=== PATIENT | female | born 1975 | race Caucasian/White ===

== ENCOUNTER 2017-01-05 14:45 | Inpatient (IN) | payer OTHER ==
[2017-01-05 16:44] VITALS: BMI 20.2
--- NOTE | 2017-01-05 18:33 | HP ---
Admission ROS [facility] - [facility] Chief Complaint: i want to go to rehab Allergies/Adverse Reactions: Allergies Allergy/AdvReac Type Severity Reaction Status Date / Time No Known Allergies Allergy Verified 01/05/17 17:29 History of Present Illness: 41 years old female with long history of heroin nicotine dependence has asthma and chronic back pain x 10 years and bipolar ii is admitted to rehab Exam Limitations: No Limitations - Ebola screening Have you traveled outside of the country in the last 21 days: No Have you had contact with anyone from an Ebola affected area: No Have you been sick,other than usual withdrawal symptoms: No Do you have a fever: No - Review of Systems Constitutional: Loss of Appetite, Unexplained wgt Loss EENT: reports: No Symptoms Reported Respiratory: reports: SOB with Exertion, Productive cough Cardiac: reports: Palpitations GI: reports: Indigestion Musculoskeletal: reports: Back Pain Integumentary: reports: No Symptoms Reported Neuro: reports: No Symptoms reported Endocrine: reports: No Symptoms Reported Hematology: reports: No Symptoms Reported Psychiatric: reports: Judgement Intact, Orientated x3, Depressed Other Systems: Reviewed and Negative Patient History - Patient Medical History Hx Anemia: No Hx Asthma: Yes Hx Chronic Obstructive Pulmonary Disease (COPD): No Hx Cancer: No Hx Cardiac Disorders: No Hx Congestive Heart Failure: No Hx Hypertension: No Hx Hypercholesterolemia: No Hx Pacemaker: No HX Cerebrovascular Accident: No Hx Seizures: No Hx Dementia: No Hx Diabetes: No Hx Gastrointestinal Disorders: Yes Hx Liver Disease: No Hx Genitourinary Disorders: No Hx Sexually Transmitted Disorders: No Hx Renal Disease (ESRD): No Hx Thyroid Disease: No Hx Human Immunodeficiency Virus (HIV): No Hx Hepatitis C: No Hx Depression: No Hx Suicide Attempt: No Hx Bipolar Disorder: Yes Hx Schizophrenia: No - Patient Surgical History Past Surgical History: No - PPD History Previous Implant?: Yes Documented Results: Negative w/o proof Implanted On Prior [facility] Admission?: No PPD to be Administered?: Yes - Reproductive History Patient is a Female of Child Bearing Age (11 -55 yrs old): Yes Last Menstrual Period: 09/03/16 Patient : No - Smoking Cessation Smoking history: Current every day smoker Have you smoked in the past 12 months: Yes Aproximately how many cigarettes per day: 20 Cigars Per Day: 0 Hx Chewing Tobacco Use: No Initiated information on smoking cessation: Yes 'Breaking Loose' booklet given: 01/05/17 - Substance & Tx. History Hx Alcohol Use: No Hx Substance Use: Yes Substance Use Type: Heroin Hx Substance Use Treatment: Yes - Substances Abused Heroin Route: Injection Frequency: Daily Amount used: 20 bags Age of first use: 41 Date of Last Use: 12/22/16 Cocaine Route: Injection Frequency: Daily Amount used: 100$ Age of first use: 19 Date of Last Use: 12/21/16 Family Disease History - Family Disease History Family Disease History: Heart Disease: Father (), CA: Mother ( esophageal ) Admission Physical Exam [facility] - Vital Signs Vital Signs: Vital Signs - 24 hr 01/05/17 16:41 Temperature 97.2 F L Pulse Rate 94 H Respiratory 18 Rate Blood Pressure 128/80 - Physical General Appearance: Yes: No Apparent Distress, Appropriately Dressed, Thin HEENTM: Yes: Hearing grossly Normal, Normal ENT Inspection, Normocephalic, Normal Voice Respiratory: Yes: Chest Non-Tender, Lungs Clear, Normal Breath Sounds, No Respiratory Distress, No Accessory Muscle Use Neck: Yes: Supple, Trachea in good position Breast: Yes: Breasts Symetrical Cardiology: Yes: Regular Rhythm, Regular Rate, S1, S2 Abdominal: Yes: Non Tender, Soft Genitourinary: Yes: Within Normal Limits Back: Yes: Normal Inspection Musculoskeletal: Yes: full range of Motion, Gait Steady, Back pain Extremities: Yes: Normal Range of Motion, Non-Tender Neurological: Yes: Fully Oriented, Alert, Motor Strength 5/5, Normal Response Integumentary: Yes: Warm Lymphatic: Yes: Within Normal Limits - Diagnostic (1) Asthma Current Visit: Yes Status: Acute Qualifiers: Asthma severity: mild intermittent Asthma complication type: with status asthmaticus Qualified Code(s): J45.22 - Mild intermittent asthma with status asthmaticus (2) Chronic back pain Current Visit: Yes Status: Chronic Qualifiers: Back pain location: low back pain Back pain laterality: bilateral Sciatica presence: without sciatica Qualified Code(s): M54.5 - Low back pain; G89.29 - Other chronic pain (3) GERD (gastroesophageal reflux disease) Current Visit: Yes Status: Acute Qualifiers: Esophagitis presence: without esophagitis Qualified Code(s): K21.9 - Gastro-esophageal reflux disease without esophagitis (4) Nicotine dependence Current Visit: Yes Status: Acute Qualifiers: Nicotine product type: cigarettes Substance use status: in withdrawal Qualified Code(s): F17.213 - Nicotine dependence, cigarettes, with withdrawal (5) Opioid dependence with withdrawal Current Visit: Yes Status: Acute (6) Weight loss Current Visit: Yes Status: Acute Cleared for Admission [facility] - Detox or Rehab [facility] Level of Care: Observation Bed Detox Regimen/Protocol: Not Applicable Claeared for Rehab Admission: Yes [facility] Breath Alcohol Content Breath Alcohol Content: 0 Urine Pregancy Test - Result Urine Test Results: Negative- NO Line Present Urine Drug Screen - Results Drug Screen Negative: Yes
[2017-01-05] MEDS ORDERED: MAGNESIUM CITRATE 300 ML BOTTLE PO PRN (18:38)
[2017-01-05] MEDS ORDERED: guaiFENesin/D-METHORPHAN HB 10 ML UNIT-DOSE CUPS PO PRN (18:38)
[2017-01-05] MEDS ORDERED: ACETAMINOPHEN 325 MG TABLET (FP) PO PRN (18:38)
[2017-01-05] MEDS ORDERED: LOPERAMIDE HCL 2 MG CAPSULE PO PRN (18:38)
[2017-01-05] MEDS ORDERED: P-EPHED 60MG/TRIPROLIDI 2.5MG TABLET PO PRN (18:38)
[2017-01-05] MEDS ORDERED: diphenhydrAMINE HCL 50 MG CAPSULE PO PRN (18:38)
[2017-01-05] MEDS ORDERED: cloNIDine HCL 0.1 MG TABLET PO PRN (18:40)
[2017-01-05] MEDS ORDERED: ALBUTEROL SO4 2.5/IPRATROPIUM 0.5 INH SOL 3 ML VIAL.NEB. NEB PRN (18:41)
[2017-01-05] MEDS ORDERED: PNEUMOCOCCAL 23 VACCINE 0.5 ML VIAL IM ONE (22:00)
[2017-01-05] MEDS: RANITIDINE HCL 150 MG TABLET (FP) PO SCH (23:06)
[2017-01-05] MEDS: THIAMINE HCL 100 MG TABLET (FP) PO SCH (23:06)
[2017-01-05 23:40] LABS: URINE APPEARANCE CLOUDY; URINE BILIRUBIN NEGATIVE (NEGATIVE); URINE BLOOD NEGATIVE (NEGATIVE); URINE COLOR YELLOW; URINE GLUCOSE (UA) NEGATIVE (NEGATIVE); URINE KETONE NEGATIVE (NEGATIVE); URINE LEUK ESTERASE NEGATIVE (NEGATIVE); URINE NITRITE NEGATIVE (NEGATIVE); URINE PROTEIN NEGATIVE (NEGATIVE); URINE UROBILINOGEN NEGATIVE E.U./dl (0.2-1.0)
[2017-01-06 10:09] LABS: ALBUMIN 3.7 g/dl (3.4-5.0)
[2017-01-06 10:24] LABS: ALK PHOS 55 U/L (45-117); ANION GAP 10 (8-16); BILIRUBIN,TOTAL 0.4 mg/dL (0.2-1.0); CALCIUM 9.1 mg/dL (8.5-10.1); CO2 27 mmol/L (21-32); CREATININE 0.8 mg/dL (0.55-1.02); GLUCOSE,RANDOM 121 mg/dL (74-106); SGOT/AST 22 U/L (15-37); SGPT/ALT 37 U/L (12-78); THYROID STIMULATING HORMONE 5.48 uIU/ml (0.358-3.74); TOT PROT 6.8 g/dl (6.4-8.2)
[2017-01-06 10:26] LABS: MCH 28.7 pg (25.7-33.7); MCHC 33.6 g/dl (32.0-36.0); MEAN CELL VOLUME 85.4 fl (80-96); MEAN PLT VOLUME 8.1 fl (7.5-11.1); PLATELET COUNT 295 K/MM3 (134-434); RDW 14.8 % (11.6-15.6); WHITE BLOOD COUNT 7.1 K/mm3 (4.0-10.0)
--- NOTE | 2017-01-06 10:28 | HP ---
Psychiatrist Admission - Data Date of interview: 01/06/17 Admission source: [facility] Identifying data: This is the second admission to [address] [place] [address] for this 41 years old female mother of 12 yo son (child resides with his father),homeless,unemployed. Medical History: BA. Psychiatric History: First contact with psychiatrist was in 2006 while in inpatient rehabilitation.She was dx with Bipolar disorder.Hypomanic episode.Placed on Li,Abilify,Lamictal,Seroquel.Patient stopped taking psychotropic medications a few years ago,medicated her self with drugs.She restarted Lamictal 25 mg po daily,Trazodone 150 mg po hs and Abilify 10 mg po daily while in detox [facility] [place] last week. Physical/Sexual Abuse/Trauma History: denies Vital Signs: Vital Signs - 24 hr 01/05/17 01/06/17 01/06/17 16:41 00:30 03:30 Temperature 97.2 F L Pulse Rate 94 H Respiratory 18 18 18 Rate Blood Pressure 128/80 01/06/17 07:07 Temperature 97.9 F Pulse Rate 81 Respiratory 16 Rate Blood Pressure 108/61 Allergies/Adverse Reactions: Allergies Allergy/AdvReac Type Severity Reaction Status Date / Time No Known Allergies Allergy Verified 01/05/17 17:29 Date of last physical exam: 01/05/17 Concur with the findings of this exam: Yes - Substance Abuse/Tx History Hx Alcohol Use: No Hx Substance Use: Yes (crack since 19 yo,smoking daily,heroin 6 months ago(20 bags daily)) Substance Use Type: Cocaine, Heroin Hx Substance Use Treatment: Yes (patient left AMA this program about 7 yo) - Admission Criteria Previous failed treatment: Yes Poor recovery environment: Yes Comorbidities: Yes Lacks judgement: Yes Mental Status Exam - Mental Status Exam Alert and Oriented to: Time, Place, Person Cognitive Function: Grossly Intact Patient Appearance: Unkempt Mood: Nervous, Anxious, Irritable Affect: Labile Patient Behavior: Cooperative Speech Pattern: Clear Voice Loudness: Normal Thought Process: Goal Oriented Thought Disorder: Not Present Hallucinations: Denies Suicidal Ideation: Denies Homicidal Ideation: Denies Insight/Judgement: Fair Sleep: Difficulty falling asleep Appetite: Good, Weight loss Muscle strength/Tone: Normal Gait/Station: Normal Psychiatric Findings - Problem List ([place] 1, 2,3) (1) Asthma Current Visit: Yes Status: Chronic Qualifiers: Asthma severity: mild intermittent Asthma complication type: with status asthmaticus Qualified Code(s): J45.22 - Mild intermittent asthma with status asthmaticus (2) GERD (gastroesophageal reflux disease) Current Visit: Yes Status: Chronic Qualifiers: Esophagitis presence: without esophagitis Qualified Code(s): K21.9 - Gastro-esophageal reflux disease without esophagitis (3) Nicotine dependence Current Visit: Yes Status: Acute Qualifiers: Nicotine product type: cigarettes Substance use status: in withdrawal Qualified Code(s): F17.213 - Nicotine dependence, cigarettes, with withdrawal (4) Opioid dependence with withdrawal Current Visit: Yes Status: Chronic (5) Chronic back pain Current Visit: Yes Status: Chronic Qualifiers: Back pain location: low back pain Back pain laterality: bilateral Sciatica presence: without sciatica Qualified Code(s): M54.5 - Low back pain; G89.29 - Other chronic pain (6) Cocaine dependence Current Visit: Yes Status: Chronic (7) Bipolar disorder Current Visit: Yes Status: Chronic - Initial Treatment Plan Initial Treatment Plan: Continue Abilify 10 mg po daily,Trazodone 150 mg o hs and LAmictal 25 mg po daily. Will monitor progtress.
[2017-01-06] MEDS: RANITIDINE HCL 150 MG TABLET (FP) PO SCH ×2 (11:00→22:03)
[2017-01-06] MEDS: PRENATAL VITAMINS W/ FOLIC ACID TABLET (FP) PO SCH (11:00)
[2017-01-06] MEDS: LIDOCAINE 5% TOPICAL PATCH TP SCH (11:08)
[2017-01-06] MEDS: NICOTINE 21 MG/24 HOURS TOPICAL PATCH TD SCH (11:09)
--- NOTE | 2017-01-06 11:11 | EKG ---
Test Reason : Blood Pressure : / mmHG Vent. Rate : 081 BPM Atrial Rate : 081 BPM P-R Int : 146 ms QRS Dur : 096 ms QT Int : 402 ms P-R-T Axes : 065 023 038 degrees QTc Int : 466 ms NORMAL SINUS RHYTHM NORMAL ECG NO PREVIOUS ECGS AVAILABLE Confirmed by CANDY BLEDSOE MD ([id number]) on 01/06/2017 11:11:22 AM Referred By: Confirmed By:CANDY BLEDSOE MD
[2017-01-06] MEDS: MENTHOL/PHENOL 1 EACH UD MM PRN ×2 (11:14→16:40)
[2017-01-06] MEDS: ARIPiprazole 10 MG TABLET PO SCH (11:54)
[2017-01-06] MEDS: lamoTRIgine 25 MG TABLET PO SCH (11:54)
[2017-01-06] MEDS: hydrOXYzine PAMOATE 50 MG CAPSULE (FP) PO PRN (11:56)
[2017-01-06 12:00] LABS: HIV 1 & 2 AB NEGATIVE; HIV 1 AGp24 NEGATIVE
[2017-01-06] MEDS ORDERED: PNEUMOC 13-VAL CONJ-DIP CRM/PF 0.5 ML DISP.SYRIN IM ONE (12:00)
[2017-01-06] MEDS ORDERED: PNEUMOCOCCAL 23 VACCINE 0.5 ML VIAL IM ONE (12:00)
[2017-01-06] MEDS ORDERED: PT OWN MED DRAWER 7, Y5N ONE (16:39)
[2017-01-06] MEDS: ALBUTEROL SO4 6.7 GM HFA INHALER IH PRN (16:41)
[2017-01-06] MEDS: CYCLOBENZAPRINE HCL 10 MG TABLET (FP) PO PRN (17:28)
[2017-01-06] MEDS: traZODone HCL 50 MG TABLET (FP) PO SCH (22:02)
[2017-01-06] MEDS: THIAMINE HCL 100 MG TABLET (FP) PO SCH (22:02)
[2017-01-07] MEDS: MAG HYDROX/AL HYDROX/SIMETH 30 ML UNIT-DOSE CUP PO PRN ×2 (01:00→20:01)
[2017-01-07] MEDS: ARIPiprazole 10 MG TABLET PO SCH (10:15)
[2017-01-07] MEDS: PRENATAL VITAMINS W/ FOLIC ACID TABLET (FP) PO SCH (10:15)
[2017-01-07] MEDS: lamoTRIgine 25 MG TABLET PO SCH (10:15)
[2017-01-07] MEDS: LIDOCAINE 5% TOPICAL PATCH TP SCH (10:15)
[2017-01-07] MEDS: NICOTINE 21 MG/24 HOURS TOPICAL PATCH TD SCH (10:16)
[2017-01-07] MEDS: CYCLOBENZAPRINE HCL 10 MG TABLET (FP) PO PRN ×2 (10:17→21:40)
[2017-01-07] MEDS: RANITIDINE HCL 150 MG TABLET (FP) PO SCH ×2 (10:17→21:40)
[2017-01-07] MEDS: ALBUTEROL SO4 6.7 GM HFA INHALER IH PRN (11:21)
[2017-01-07] MEDS: MENTHOL/PHENOL 1 EACH UD MM PRN ×2 (16:33→21:41)
[2017-01-07] MEDS: traZODone HCL 50 MG TABLET (FP) PO SCH (21:40)
[2017-01-07] MEDS: hydrOXYzine PAMOATE 50 MG CAPSULE (FP) PO PRN (21:40)
[2017-01-07] MEDS: THIAMINE HCL 100 MG TABLET (FP) PO SCH (21:41)
[2017-01-08] MEDS: IBUPROFEN 400 MG TABLET (FP) PO PRN (07:56)
[2017-01-08] MEDS: RANITIDINE HCL 150 MG TABLET (FP) PO SCH ×2 (10:04→21:35)
[2017-01-08] MEDS: ARIPiprazole 10 MG TABLET PO SCH (10:04)
[2017-01-08] MEDS: PRENATAL VITAMINS W/ FOLIC ACID TABLET (FP) PO SCH (10:04)
[2017-01-08] MEDS: lamoTRIgine 25 MG TABLET PO SCH (10:04)
[2017-01-08] MEDS: LIDOCAINE 5% TOPICAL PATCH TP SCH (10:04)
[2017-01-08] MEDS: NICOTINE 21 MG/24 HOURS TOPICAL PATCH TD SCH (10:04)
[2017-01-08] MEDS: MENTHOL/PHENOL 1 EACH UD MM PRN (10:06)
[2017-01-08] MEDS: hydrOXYzine PAMOATE 50 MG CAPSULE (FP) PO PRN ×2 (10:06→21:36)
[2017-01-08] MEDS: CYCLOBENZAPRINE HCL 10 MG TABLET (FP) PO PRN ×2 (10:06→21:36)
[2017-01-08] MEDS ORDERED: PT OWN MED DRAWER 7, Y5N ONE (15:07)
[2017-01-08] MEDS: MAG HYDROX/AL HYDROX/SIMETH 30 ML UNIT-DOSE CUP PO PRN ×2 (15:09→21:35)
[2017-01-08] MEDS: ALBUTEROL SO4 6.7 GM HFA INHALER IH PRN (15:09)
[2017-01-08] MEDS: THIAMINE HCL 100 MG TABLET (FP) PO SCH (21:36)
[2017-01-08] MEDS: traZODone HCL 50 MG TABLET (FP) PO SCH (21:37)
[2017-01-09] MEDS: IBUPROFEN 400 MG TABLET (FP) PO PRN (06:36)
[2017-01-09] MEDS: LIDOCAINE 5% TOPICAL PATCH TP SCH (09:57)
[2017-01-09] MEDS: NICOTINE 21 MG/24 HOURS TOPICAL PATCH TD SCH (09:58)
[2017-01-09] MEDS: RANITIDINE HCL 150 MG TABLET (FP) PO SCH ×2 (10:00→21:33)
[2017-01-09] MEDS: ARIPiprazole 10 MG TABLET PO SCH (10:00)
[2017-01-09] MEDS: PRENATAL VITAMINS W/ FOLIC ACID TABLET (FP) PO SCH (10:00)
[2017-01-09] MEDS: MENTHOL/PHENOL 1 EACH UD MM PRN (10:01)
[2017-01-09] MEDS: MAG HYDROX/AL HYDROX/SIMETH 30 ML UNIT-DOSE CUP PO PRN ×2 (10:01→16:19)
[2017-01-09] MEDS: hydrOXYzine PAMOATE 50 MG CAPSULE (FP) PO PRN (10:01)
[2017-01-09] MEDS: lamoTRIgine 25 MG TABLET PO SCH (10:01)
[2017-01-09] MEDS: NICOTINE POLACRILEX 2 MG GUM BC PRN (10:02)
[2017-01-09] MEDS: traZODone HCL 50 MG TABLET (FP) PO SCH (21:34)
[2017-01-09] MEDS: THIAMINE HCL 100 MG TABLET (FP) PO SCH (21:34)
[2017-01-10] MEDS: MAGNESIUM HYDROX 2400MG/30ML ORAL SUSPENSION 30 ML CUP PO PRN (05:13)
[2017-01-10 06:49] VITALS: TEMP 97.7
[2017-01-10] MEDS: RANITIDINE HCL 150 MG TABLET (FP) PO SCH (10:07)
[2017-01-10] MEDS: lamoTRIgine 25 MG TABLET PO SCH (10:07)
[2017-01-10] MEDS: PRENATAL VITAMINS W/ FOLIC ACID TABLET (FP) PO SCH (10:07)
[2017-01-10] MEDS: ARIPiprazole 10 MG TABLET PO SCH (10:07)
[2017-01-10] MEDS: LIDOCAINE 5% TOPICAL PATCH TP SCH (10:08)
[2017-01-10] MEDS: MENTHOL/PHENOL 1 EACH UD MM PRN (10:09)
[2017-01-10] MEDS: NICOTINE 21 MG/24 HOURS TOPICAL PATCH TD SCH (10:09)
[2017-01-10] MEDS: NICOTINE POLACRILEX 2 MG GUM BC PRN ×4 (10:09→17:41)
[2017-01-10] MEDS ORDERED: PT OWN MED DRAWER 7, Y5N ONE ×2 (10:25→22:08)
[2017-01-10] MEDS: MAG HYDROX/AL HYDROX/SIMETH 30 ML UNIT-DOSE CUP PO PRN ×2 (12:48→18:25)
[2017-01-10] MEDS: CYCLOBENZAPRINE HCL 10 MG TABLET (FP) PO PRN (12:52)
--- NOTE | 2017-01-10 14:29 | PN ---
[facility] Progress Note Note: Pt. has a small stye rt. lower eyelid close to nasal bridge P : maxitrol oin't bid
[2017-01-10] MEDS: PANTOPRAZOLE 40 MG TABLET (FP) PO SCH (14:52)
[2017-01-10] MEDS: THIAMINE HCL 100 MG TABLET (FP) PO SCH (22:04)
[2017-01-10] MEDS: NEO/POLYMYX B SULF/DEXAMETH OPHTHALMIC OINTMENT 3.5 GM OD SCH (22:04)
[2017-01-10] MEDS: traZODone HCL 50 MG TABLET (FP) PO SCH (22:04)
[2017-01-11] MEDS: hydrOXYzine PAMOATE 50 MG CAPSULE (FP) PO PRN (06:07)
[2017-01-11] MEDS: CYCLOBENZAPRINE HCL 10 MG TABLET (FP) PO PRN (06:07)
[2017-01-11] MEDS: MAG HYDROX/AL HYDROX/SIMETH 30 ML UNIT-DOSE CUP PO PRN (06:08)
[2017-01-11] MEDS: PANTOPRAZOLE 40 MG TABLET (FP) PO SCH (07:20)
[2017-01-11 07:44] VITALS: BP 100/65; PULSE 76
[2017-01-11] MEDS ORDERED: PT OWN MED DRAWER 7, Y5N ONE ×2 (09:06→10:20)
[2017-01-11] MEDS: LIDOCAINE 5% TOPICAL PATCH TP SCH (10:16)
[2017-01-11] MEDS: lamoTRIgine 25 MG TABLET PO SCH (10:16)
[2017-01-11] MEDS: ARIPiprazole 10 MG TABLET PO SCH (10:16)
[2017-01-11] MEDS: NEO/POLYMYX B SULF/DEXAMETH OPHTHALMIC OINTMENT 3.5 GM OD SCH (10:17)
[2017-01-11] MEDS: PRENATAL VITAMINS W/ FOLIC ACID TABLET (FP) PO SCH (10:18)
[2017-01-11] MEDS: NICOTINE 21 MG/24 HOURS TOPICAL PATCH TD SCH (10:18)
[2017-01-11] MEDS: ALBUTEROL SO4 6.7 GM HFA INHALER IH PRN (10:20)
[2017-01-11] MEDS: MAGNESIUM HYDROX 2400MG/30ML ORAL SUSPENSION 30 ML CUP PO PRN (10:20)
[2017-01-11] MEDS: NICOTINE POLACRILEX 2 MG GUM BC PRN (10:21)
[2017-01-11] MEDS: MENTHOL/PHENOL 1 EACH UD MM PRN (10:21)
[2017-01-11 10:36] LABS: FREE T4 0.71 ng/dl (0.76-1.46)
--- NOTE | 2017-01-11 13:13 | PN ---
Psychiatric Progress Note Vital Signs: Vital Signs Period Temp Pulse Resp BP Sys/Santiago Pulse Ox Last 24 Hr 97.7 F 76 16-18 100/65 Date of Session: 01/11/17 Chief Complaint:: Discharge visit HPI: Patient addressed opioid and Cocaine dependence comorbid with Bipolar disorder. ROS: GERD,BA. Current Medications: Active Medications Generic Name Dose Route Start Last Admin Trade Name Freq PRN Reason Stop Dose Admin Acetaminophen 650 mg 01/05/17 18:38 Tylenol - PO Q4H PRN PAIN Al Hydroxide/Mg Hydroxide 30 ml 01/05/17 18:38 01/11/17 06:08 Mylanta Oral Suspension - PO 30 ml Q6H PRN Administration DYSPEPSIA Albuterol Sulfate 2 puff 01/05/17 18:41 01/11/17 10:20 Ventolin Hfa Inhaler - IH 2 inhaler Q4H PRN Administration SHORT OF BREATH/WHEEZING Aripiprazole 10 mg 01/06/17 11:00 01/11/17 10:16 Abilify PO 10 mg DAILY DG Administration Clonidine 0.1 mg 01/05/17 18:40 Catapres - PO Q8H PRN WITHDRAWAL(CONT SUBST) Cyclobenzaprine HCl 10 mg 01/05/17 18:41 01/11/17 06:07 Flexeril - PO 10 mg TID PRN Administration MUSCLE SPASMS Diphenhydramine HCl 50 mg 01/05/17 18:38 Benadryl - PO HSMR1 PRN INSOMNIA Eucalyptus/Menthol/Phenol/Sorbitol 1 each 01/05/17 18:38 01/11/17 10:21 Cepastat Lozenge - MM 1 each Q4H PRN Administration SORE THROAT Guaifenesin 10 ml 01/05/17 18:38 Robitussin Dm - PO Q6H PRN COUGH Hydroxyzine Pamoate 50 mg 01/05/17 18:38 01/11/17 06:07 Vistaril - PO 50 mg Q4H PRN Administration AGITATION Ibuprofen 400 mg 01/05/17 18:38 01/09/17 06:36 Motrin - PO 400 mg Q6H PRN Administration SEVERE PAIN Lamotrigine 25 mg 01/06/17 11:00 01/11/17 10:16 Lamictal - PO 25 mg DAILY DG Administration Lidocaine 1 patch 01/06/17 10:00 01/11/17 10:16 Lidoderm Patch - TP 1 patch DAILY DG Administration Loperamide HCl 4 mg 01/05/17 18:38 Imodium - PO Q6H PRN DIARRHEA Magnesium Citrate 300 ml 01/05/17 18:38 Citroma - PO Q48H PRN CONSTIPATION Magnesium Hydroxide 30 ml 01/05/17 18:38 01/11/17 10:20 Milk Of Magnesia - PO 30 ml DAILY PRN Administration CONSTIPATION Neomycin/Polymyxin/Dexamethasone 1 applic 01/10/17 22:00 01/11/17 10:17 Maxitrol Eye Ointment - OD 1 applic BID DG Administration Nicotine 21 mg 01/06/17 10:00 01/11/17 10:18 Nicoderm Patch - TD 21 mg DAILY DG Administration Nicotine Polacrilex 2 mg 01/05/17 18:38 01/11/17 10:21 Nicorette Gum - BC 2 mg Q2H PRN Administration NICOTINE REPLACEMENT RX Pantoprazole Sodium 40 mg 01/10/17 14:30 01/11/17 07:20 Protonix - PO 40 mg DAILY@0800 DG Administration Multivit/Folic Acid/Iron 1 tab 01/06/17 10:00 01/11/17 10:18 Vitamins ([facility]) - PO 1 tab DAILY DG Administration Pseudoephedrine/Triprolidine 1 combo 01/05/17 18:38 Actifed - PO TID PRN NASAL CONGESTION Thiamine HCl 100 mg 01/05/17 22:00 01/10/17 22:04 Vitamin B1 - PO Not Given HS DG Trazodone HCl 150 mg 01/06/17 22:00 01/10/17 22:04 Desyrel - PO Not Given HS DG Current Side Effect: No Lab tests ordered: No Lab tests reviewed: Yes Provider note:: Patient was evaluated in my office.She decided to sign out today AMA.Patient advised to continue her treatment and further stabilization on inpatient basis.She ignored our recommendations.patient will continue to address her issues on outpatient basis at [facility].Patient continues to find that current medications help to reduce her anxiety,depression,sleeping difficulties.Scripts for 30 days provided. Total face to face time:: 30 Mental Status Exam - Mental Status Exam Alert and Oriented to: Time, Place, Person Cognitive Function: Grossly Intact Patient Appearance: Unkempt Mood: Anxious, Irritable Affect: Mood Congruent, Labile Patient Behavior: Resitive to Care Speech Pattern: Clear Voice Loudness: Normal Thought Process: Goal Oriented Thought Disorder: Being Controlled Hallucinations: Denies Suicidal Ideation: Denies Homicidal Ideation: Denies Insight/Judgement: Impaired Sleep: Fair Appetite: Good Muscle strength/Tone: Normal Gait/Station: Normal Psychiatric Treatment Plan - Problem List (1) Asthma Current Visit: Yes Qualifiers: Asthma severity: mild intermittent Asthma complication type: with status asthmaticus Qualified Code(s): J45.22 - Mild intermittent asthma with status asthmaticus (2) GERD (gastroesophageal reflux disease) Current Visit: Yes Qualifiers: Esophagitis presence: without esophagitis Qualified Code(s): K21.9 - Gastro-esophageal reflux disease without esophagitis (3) Nicotine dependence Current Visit: Yes Qualifiers: Nicotine product type: cigarettes Substance use status: in withdrawal Qualified Code(s): F17.213 - Nicotine dependence, cigarettes, with withdrawal (4) Opioid dependence with withdrawal Current Visit: Yes (5) Chronic back pain Current Visit: Yes Qualifiers: Back pain location: low back pain Back pain laterality: bilateral Sciatica presence: without sciatica Qualified Code(s): M54.5 - Low back pain; G89.29 - Other chronic pain (6) Cocaine dependence Current Visit: Yes (7) Bipolar disorder Current Visit: Yes
[2017-01-12 07:58] LABS: T3 UPTAKE 24.6 % (30-39)
[2017-01-12 14:16] LABS: HCV LOG 10 6.019 (.)
== END 2017-01-11 13:19 | disposition left against medical advice (07) | DRG 770 ==
LOC: YASAS 14:45 → Y3E 18:02
PROVIDERS: ADMIT Psychiatry & Neurology Psychiatry; ATTEND Psychiatry & Neurology Psychiatry
PROC: HZ42ZZZ Group Counseling for Substance Abuse Treatment, Cognitive-Behavioral (ICD-10-PCS; principal; 2017-01-05)
DX: F11.20 Opioid dependence, uncomplicated (principal); F14.20 Cocaine dependence, uncomplicated; F17.210 Nicotine dependence, cigarettes, uncomplicated; F31.9 Bipolar disorder, unspecified; J45.22 Mild intermittent asthma with status asthmaticus; K21.9 Gastro-esophageal reflux disease without esophagitis; M54.5 Low back pain; G89.29 Other chronic pain; H00.012 Hordeolum externum right lower eyelid; Z87.898 Personal history of other specified conditions; Z59.0 Homelessness
CPT/HCPCS: 36415; 80053; 81003; 84439; 84443; 84479; 85027; 86593; 87389; 87522; 90732; 93005; 93010; 94640; G0009